=== PATIENT | female | born 1960 | race Caucasian/White ===

== ENCOUNTER 2021-03-23 14:54 | Outpatient (CLI) | payer OTHER | END 2021-03-23 14:55 | disposition home or self-care (01) | LOC: CSHMAMMO 14:54 | PROVIDERS: ATTEND Family Medicine | DX: Z12.31 Encounter for screening mammogram for malignant neoplasm of breast (principal); M81.0 Age-related osteoporosis without current pathological fracture; M85.851 Other specified disorders of bone density and structure, right thigh; M85.852 Other specified disorders of bone density and structure, left thigh | CPT/HCPCS: 77063; 77067; 77080 ==

== ENCOUNTER 2021-11-24 08:10 | Outpatient (CLI) | payer OTHER ==
[2021-11-24] MEDS ORDERED: Iopamidol 300 61% 100 ML VIAL FS ONE (12:57)
== END 2021-11-24 08:11 | disposition home or self-care (01) ==
LOC: CSHCT 08:10
PROVIDERS: ATTEND Internal Medicine
DX: R10.11 Right upper quadrant pain (principal); K21.9 Gastro-esophageal reflux disease without esophagitis; K59.00 Constipation, unspecified; Z86.010 Personal history of colon polyps
CPT/HCPCS: 74160; 82565; Q9967

== ENCOUNTER 2022-04-06 11:56 | Outpatient (CLI) | payer OTHER | END 2022-04-06 11:57 | disposition home or self-care (01) | LOC: CSHMAMMO 11:56 | PROVIDERS: ATTEND Family Medicine | DX: Z12.31 Encounter for screening mammogram for malignant neoplasm of breast (principal) | CPT/HCPCS: 77063; 77067 ==

== ENCOUNTER 2023-09-26 10:28 | Outpatient (CLI) | payer OTHER | END 2023-09-26 10:29 | disposition home or self-care (01) | LOC: CSHMAMMO 10:28 | PROVIDERS: ATTEND Family Medicine | DX: M85.88 Other specified disorders of bone density and structure, other site (principal); M85.851 Other specified disorders of bone density and structure, right thigh; M85.852 Other specified disorders of bone density and structure, left thigh; M81.0 Age-related osteoporosis without current pathological fracture | CPT/HCPCS: 77080 ==